=== PATIENT | female | born 1960 ===

== ENCOUNTER 2017-10-19 03:24 | Outpatient (CLI) | payer MEDICARE, MEDICAID | END 2017-10-19 23:59 | disposition home or self-care (01) | LOC: DIABETIC 03:24 | PROVIDERS: ATTEND Specialist | DX: E11.43 Type 2 diabetes mellitus with diabetic autonomic (poly)neuropathy (principal) | CPT/HCPCS: G0108 ==

== ENCOUNTER 2018-01-18 08:17 | Outpatient (CLI) | payer MEDICARE, MEDICAID | END 2018-01-18 23:59 | disposition home or self-care (01) | LOC: DIABETIC 08:17 | PROVIDERS: ATTEND Specialist | DX: E11.43 Type 2 diabetes mellitus with diabetic autonomic (poly)neuropathy (principal) | CPT/HCPCS: G0108 ==

== ENCOUNTER 2018-07-11 00:34 | Outpatient (CLI) | payer MEDICARE, MEDICAID | END 2018-07-11 23:59 | disposition home or self-care (01) | LOC: DIABETIC 00:34 | PROVIDERS: ATTEND Specialist | DX: E10.65 Type 1 diabetes mellitus with hyperglycemia (principal); Z79.82 Long term (current) use of aspirin; Z79.899 Other long term (current) drug therapy; Z88.5 Allergy status to narcotic agent | CPT/HCPCS: G0108 ==

== ENCOUNTER 2018-10-11 02:12 | Outpatient (CLI) | payer MEDICARE, MEDICAID | END 2018-10-11 23:59 | disposition home or self-care (01) | LOC: DIABETIC 02:12 | PROVIDERS: ATTEND Specialist | DX: E10.8 Type 1 diabetes mellitus with unspecified complications (principal); Z79.4 Long term (current) use of insulin; Z88.5 Allergy status to narcotic agent | CPT/HCPCS: G0108 ==

== ENCOUNTER 2019-01-24 01:00 | Outpatient (CLI) | payer MEDICARE, MEDICAID | END 2019-01-24 23:59 | disposition home or self-care (01) | LOC: DIABETIC 01:00 | PROVIDERS: ATTEND Specialist | DX: E10.65 Type 1 diabetes mellitus with hyperglycemia (principal); Z79.4 Long term (current) use of insulin; Z88.8 Allergy status to other drugs, medicaments and biological substances; Z79.899 Other long term (current) drug therapy | CPT/HCPCS: G0108 ==

== ENCOUNTER 2019-05-02 03:23 | Outpatient (CLI) | payer MEDICARE, MEDICAID | END 2019-05-02 23:59 | disposition home or self-care (01) | LOC: DIABETIC 03:23 | PROVIDERS: ATTEND Specialist | DX: E11.65 Type 2 diabetes mellitus with hyperglycemia (principal); Z79.82 Long term (current) use of aspirin; Z79.4 Long term (current) use of insulin; Z79.899 Other long term (current) drug therapy; Z88.5 Allergy status to narcotic agent | CPT/HCPCS: G0108 ==

== ENCOUNTER 2019-07-31 04:13 | Outpatient (CLI) | payer MEDICARE, MEDICAID | END 2019-07-31 23:59 | disposition home or self-care (01) | LOC: DIABETIC 04:13 | PROVIDERS: ATTEND Specialist | DX: E11.65 Type 2 diabetes mellitus with hyperglycemia (principal); Z79.4 Long term (current) use of insulin; Z79.899 Other long term (current) drug therapy; Z88.5 Allergy status to narcotic agent; Z79.82 Long term (current) use of aspirin | CPT/HCPCS: G0108 ==

== ENCOUNTER 2019-10-23 04:33 | Outpatient (CLI) | payer MEDICARE, MEDICAID | END 2019-10-23 23:59 | disposition home or self-care (01) | LOC: DIABETIC 04:33 | PROVIDERS: ATTEND Specialist | DX: E11.65 Type 2 diabetes mellitus with hyperglycemia (principal) | CPT/HCPCS: G0108 ==